=== PATIENT | female | born 1995 | race African-American/Black ===

== ENCOUNTER 2024-08-20 10:53 | Emergency (ER) | payer OTHER ==
[~2024-08-20] VITALS: Ht 175.3 cm; Wt 83.9 kg
[~2024-08-20 10:53] MED LIST: CODACE30 PO; IBUP800 PO; Keflex500 MG PO; Vitafol-Ob+Dha1 EACH PO
[2024-08-20 11:21] VITALS: BP 145/106
[2024-08-20] MEDS ORDERED: Ketorolac Tromethamine 30mg Vial IM ONE (13:00)
== END 2024-08-20 13:11 | disposition home or self-care (01) ==
LOC: ER 10:53
DX: M53.3 Sacrococcygeal disorders, not elsewhere classified (principal); Z59.89 Other problems related to housing and economic circumstances; Z91.040 Latex allergy status
CPT/HCPCS: 72100; 72220; 96372; 99283-25; J1885